=== PATIENT | female | born 1935 | race Caucasian/White ===

== ENCOUNTER 2016-12-18 07:34 | Emergency (ER) | payer OTHER ==
[~2016-12-18] VITALS: Ht 152.4 cm; Wt 46.9 kg
[~2016-12-18 07:34] MED LIST: AMLODIPINE BESYL5 MG PO; ASPIR-LOW81 MG PO; ASPIRIN81 M2 PO; COSOPT EYE DROPS5 ML BOTH EYES; HYDROCODON-ACE1 EAC7 PO; ICY HOT1 EACH TP; IRON325 M1 PO; LEVOTHYROXINE25 MCG PO; MELOXICAM15 MG PO; METFORMIN HCL500 MG PO; PEPCID40 MG PO; PLAVIX75 MG PO; PRAVASTATIN SOD10 MG PO; PROMETHAZINE HC25 M1 PO; VITAMIN B-12250 MCG PO; XALATAN2.5 ML BOTH EYES; ZESTORETIC 20-1 EAC1 NG
[2016-12-18 08:17] LABS: BASOPHIL COUNT 0.1 K/uL (0-0.1); EOSINOPHIL (%) 1.5 % (0-5); EOSINOPHIL COUNT 0.2 K/uL (0-0.3); IMMATURE GRANULOCYTE (%) 0.5 % (0.0-0.7); IMMATURE GRANULOCYTE COUNT 0.1 K/uL; INSTRUMENT ABS NEUTROPHIL CT 6.9 K/uL; LYMPHOCYTE COUNT 2.5 K/uL (1.0-2.8); MCH 29.5 PG (29.0-34.0); MCHC 33.9 G/DL (30.0-36.0); MEAN PLAT.VOLUME 9.2 uM^3 (9.5-12.4); MONOCYTE (%) 7.8 % (3-12); MONOCYTE COUNT 0.8 K/uL (0-0.8); NEUTROPHIL COUNT 6.9 K/uL (1.8-6.4); PLATELET COUNT 324 K/uL (156-360); RBC DIS.WIDTH-CV 12.6 % (11.8-14.6); RBC DIS.WIDTH-SD 39.7 % (39-53); RED BLOOD COUNT 4.14 M/uL (3.80-5.20); WHITE BLOOD COUNT 10.4 K/uL (4.1-10.2)
[2016-12-18 08:27] LABS: CHLORIDE 101 mEq/L (99-109); POTASSIUM 3.7 mEq/L (3.7-5.4); SODIUM 140 mEq/L (136-147)
[2016-12-18 08:28] LABS: GLUCOSE 121 mg/dL (70-99)
[2016-12-18 08:30] LABS: ANION GAP 17 MEQ/L (2-14)
[2016-12-18 08:32] LABS: GFR ESTIMATE (CALCULATED) > 59 mL/min/
[2016-12-18 08:33] LABS: UREA NITROGEN (BUN) 13 mg/dL (9-23)
[2016-12-18 08:37] LABS: TROP-I INTERPRETATION NEGATIVE; TROPONIN-I 0.01 ng/mL (0.0-0.30)
[2016-12-18] MEDS ORDERED: MOTRIN600 MG PO (09:49)
[2016-12-18 11:06] VITALS: BP 143/84
== END 2016-12-18 11:07 | disposition home or self-care (01) ==
LOC: EME 07:34
PROVIDERS: Emergency Medicine
DX: R07.89 Other chest pain (principal); I10 Essential (primary) hypertension; S20.222A Contusion of left back wall of thorax, initial encounter; W20.8XXA Other cause of strike by thrown, projected or falling object, initial encounter; E78.5 Hyperlipidemia, unspecified; E11.9 Type 2 diabetes mellitus without complications
CPT/HCPCS: 71010; 80048; 84484; 85025; 93005; 99281; 99284